=== PATIENT | female | born 1955 | race African-American/Black ===

== ENCOUNTER 2018-03-23 18:37 | Inpatient (IN) | payer OTHER ==
[2018-03-23] MEDS: SOD CHLORIDE 0.9% 250 ML IV* (00:15)
[2018-03-23 19:53] LABS: ADD MAN DIFF? NO
[2018-03-23 19:56] LABS: BASOPHILS % 0.6 % (0.0-2.0); EOSINOPHILS # 0.2 10^3/ul (0.0-0.5); EOSINOPHILS % 2.3 % (0.0-7.0); HEMATOCRIT 45.9 % (37.0-47.0); HEMOGLOBIN 14.8 g/dl (12.0-16.0); LYMPHOCYTES # 1.7 10^3/ul (0.8-2.9); LYMPHOCYTES % 26.2 % (15.0-51.0); MEAN CORPUSCULAR HEMOGLOBIN 28.4 pg (29.0-33.0); MEAN CORPUSCULAR HGB CONC 32.2 g/dl (32.0-37.0); MEAN CORPUSCULAR VOLUME 87.9 fl (82.0-101.0); MEAN PLATELET VOLUME 11.6 fl (7.4-10.4); MONOCYTE # 0.5 10^3/ul (0.3-0.9); MONOCYTES % 7.4 % (0.0-11.0); NEUTROPHIL # 4.2 10^3/ul (1.6-7.5); NEUTROPHILS % 63.2 % (39.0-77.0); PLATELET COUNT 280 10^3/UL (140-415); RED BLOOD COUNT 5.22 10^6/ul (4.20-5.40); RED CELL DISTRIBUTION WIDTH 15.4 % (11.5-14.5)
[2018-03-23 19:56] LABS: WHITE BLOOD COUNT 6.6 10^3/ul (4.8-10.8)
[2018-03-23 20:13] LABS: ACETAMINOPHEN < 10.0 ug/ml (10.0-30.0); ALANINE AMINOTRANSFERASE 25 IU/L (13-69); ALBUMIN 4.1 g/dl (3.3-4.9); ALBUMIN/GLOBULIN RATIO 1.02; ALKALINE PHOSPHATASE 129 IU/L (42-121); ANION GAP 13 (8-16); ASPARTATE AMINO TRANSFERASE 28 IU/L (15-46); BILIRUBIN,INDIRECT 0.2 mg/dl (0-1.1); BILIRUBIN,TOTAL 0.2 mg/dl (0.2-1.3); BLOOD UREA NITROGEN 17 mg/dl (7-20); CALCIUM 9.4 mg/dl (8.4-10.2); CARBON DIOXIDE 28 mmol/L (21-31); CHLORIDE 109 mmol/L (97-110); CREATININE 1.03 mg/dl (0.44-1.00); GLUCOSE 131 mg/dl (70-220); POTASSIUM 3.9 mmol/L (3.5-5.1); SALICYLATE < 1.0 mg/dl (5.0-30.0); SODIUM 146 mmol/L (135-144); TOTAL PROTEIN 8.1 g/dl (6.1-8.1)
[2018-03-23 20:14] LABS: AMMONIA < 9 umol/l (9-30)
[2018-03-23 20:24] LABS: TROPONIN-I < 0.012 ng/ml (0.000-0.120)
[2018-03-23 20:27] LABS: ADD UMIC YES; UR ASCORBIC ACID NEGATIVE (NEGATIVE); UR BACTERIA FEW /HPF (NONE SEEN); UR BILIRUBIN (Dip) NEGATIVE (NEGATIVE); UR BLOOD (Dip) 2+ mg/dL (NEGATIVE); UR CLARITY SLIGHTLY CLOUDY (CLEAR); UR COLOR YELLOW (YELLOW); UR GLUCOSE (Dip) NEGATIVE (NEGATIVE); UR KETONES (Dip) NEGATIVE (NEGATIVE); UR LEUKOCYTE ESTERASE (Dip) TRACE Leu/ul (NEGATIVE); UR MUCUS FEW /HPF (NONE SEEN); UR NITRITE (Dip) NEGATIVE (NEGATIVE); UR RBC 10 /HPF (0-5); UR SQUAMOUS EPITHELIAL CELL FEW /HPF (FEW); UR TOTAL PROTEIN (Dip) NEGATIVE (NEGATIVE); UR UROBILINOGEN (Dip) 1+ mg/dL (NEGATIVE); UR WBC 6 /HPF (0-5)
[2018-03-23] MEDS ORDERED: LABETALOL HCL 20MG INJ IV ×2 (20:30→21:30)
[2018-03-23] MEDS ORDERED: ACETAMINOPHEN 650 MG SUPP PR (20:30)
[2018-03-23 20:42] LABS: LACTIC ACID 1.8 mmol/L (0.5-2.0)
[2018-03-23 20:44] LABS: ETHANOL < 10.0 mg/dl
[2018-03-23] MEDS: IOHEXOL 100 ML (20:49)
[2018-03-23] MEDS: SOD CHLORIDE 0.9% 100 ML (20:49)
[2018-03-23] MEDS: IOHEXOL 350MG/ML 50 ML BTL (20:50)
[2018-03-23 21:10] LABS: AMPHETAMINE/METHAMPHETAMINE NEGATIVE (NEGATIVE); BARBITURATES NEGATIVE (NEGATIVE); BENZODIAZEPINES NEGATIVE (NEGATIVE); CANNABINOIDS NEGATIVE (NEGATIVE); COCAINE NEGATIVE (NEGATIVE); OPIATES NEGATIVE (NEGATIVE)
[2018-03-23 21:15] LABS: PROTIME 12.2 Sec (11.9-14.9)
[2018-03-23 21:16] LABS: PARTIAL THROMBOPLASTIN TIME 28.1 Sec (25.0-35.0)
[2018-03-23 21:24] LABS: MAGNESIUM 1.9 mg/dl (1.7-2.5)
[2018-03-23 21:24] LABS: CHOL/HDL RATIO 5.4 RATIO; CHOLESTEROL 234 mg/dl (100-200); HDL CHOLESTEROL 43 mg/dl (35-98); LDL CHOLESTEROL,CALCULATED 151 mg/dl; TRIGLYCERIDES 201 mg/dl (0-149)
[2018-03-23] MEDS: DESMOPRESSIN IVPB (21:42)
[2018-03-23] MEDS: SOD CHLORIDE 0.9% IVPB (21:42)
[2018-03-23 21:59] LABS: HEMOGLOBIN A1C 6.3 % (0-5.9)
[2018-03-23] MEDS: DOCUSATE SODIUM 100 MG CAP PO (23:08)
[2018-03-23 23:46] LABS: LACTIC ACID 1.3 mmol/L (0.5-2.0)
[2018-03-23 23:50] LABS: ANTIGEN IDENTIFICATION 1 1
[2018-03-24] MEDS: PANTOPRAZOLE 40 MG INJ IV (06:04)
[2018-03-24] MEDS ORDERED: ONDANSETRON (ODT) 4 MG TAB ODT (15:00)
[2018-03-24] MEDS ORDERED: MECLIZINE 25 MG TAB PO (15:00)
[2018-03-24] MEDS: DOCUSATE SODIUM 100 MG CAP PO ×2 (17:39→21:22)
[2018-03-24] MEDS: AMLODIPINE 5 MG TAB PO (21:22)
[2018-03-24] MEDS: ATORVASTATIN 20 MG TAB PO (21:22)
[2018-03-25] MEDS ORDERED: VANCOMYCIN IV PER PHARMACY XX (02:30)
[2018-03-25] MEDS: VANCOMYCIN 2 GM in SOD CHLORIDE 0.9% 500 ML IVPB (03:44)
[2018-03-25] MEDS: PANTOPRAZOLE 40 MG INJ IV (06:47)
[2018-03-25] MEDS: ASPIRIN 81 MG TAB PO (08:58)
[2018-03-25] MEDS: BENAZEPRIL 20 MG TAB PO (08:58)
[2018-03-25] MEDS: AMLODIPINE 5 MG TAB PO (08:59)
[2018-03-25] MEDS: CLOPIDOGREL 75 MG TAB PO (08:59)
[2018-03-25] MEDS: DOCUSATE SODIUM 100 MG CAP PO ×2 (08:59→22:14)
[2018-03-25] MEDS: ATORVASTATIN 20 MG TAB PO (22:14)
[2018-03-25] MEDS: VANCOMYCIN 1.5 GM in SOD CHLORIDE 0.9% 250 ML IVPB (22:37)
[2018-03-26] MEDS ORDERED: VANCOMYCIN 1.25 GM in SOD CHLORIDE 0.9% 250 ML IVPB (03:00)
[2018-03-26] MEDS: PANTOPRAZOLE 40 MG INJ IV (05:59)
[2018-03-26 06:31] LABS: BLOOD UREA NITROGEN 15 mg/dl (7-20)
[2018-03-26 06:31] LABS: CREATININE 0.76 mg/dl (0.44-1.00)
[2018-03-26] MEDS: BENAZEPRIL 20 MG TAB PO (09:18)
[2018-03-26] MEDS: DOCUSATE SODIUM 100 MG CAP PO ×2 (09:19→21:29)
[2018-03-26] MEDS: AMLODIPINE 5 MG TAB PO (09:20)
[2018-03-26] MEDS: CLOPIDOGREL 75 MG TAB PO (09:21)
[2018-03-26] MEDS: CEFTRIAXONE 1 GM/50 ML (PMX) 50 ML IVPB ×2 (10:00→12:14)
[2018-03-26] MEDS: VANCOMYCIN 750 MG in SOD CHLORIDE 0.9% 150 ML IVPB (13:51)
[2018-03-26] MEDS: ATORVASTATIN 20 MG TAB PO (21:29)
[2018-03-27] MEDS: VANCOMYCIN 750 MG in SOD CHLORIDE 0.9% 150 ML IVPB ×2 (00:22→12:55)
[2018-03-27] MEDS: PANTOPRAZOLE 40 MG INJ IV (05:57)
[2018-03-27 06:42] LABS: BLOOD UREA NITROGEN 12 mg/dl (7-20)
[2018-03-27 06:42] LABS: CREATININE 0.91 mg/dl (0.44-1.00)
[2018-03-27] MEDS: BENAZEPRIL 20 MG TAB PO (08:13)
[2018-03-27] MEDS: DOCUSATE SODIUM 100 MG CAP PO ×2 (08:13→21:41)
[2018-03-27] MEDS: AMLODIPINE 5 MG TAB PO (08:14)
[2018-03-27] MEDS: CEFTRIAXONE 1 GM/50 ML (PMX) 50 ML IVPB (10:29)
[2018-03-27 12:42] LABS: VANCOMYCIN,TROUGH 13.3 ug/ml (10.0-20.0)
[2018-03-27] MEDS: ATORVASTATIN 20 MG TAB PO (21:41)
[2018-03-28] MEDS: VANCOMYCIN 750 MG in SOD CHLORIDE 0.9% 150 ML IVPB ×2 (00:30→12:48)
[2018-03-28] MEDS: PANTOPRAZOLE 40 MG INJ IV (06:01)
[2018-03-28] MEDS: AMLODIPINE 5 MG TAB PO (08:21)
[2018-03-28] MEDS: DOCUSATE SODIUM 100 MG CAP PO ×2 (08:22→20:31)
[2018-03-28] MEDS: BENAZEPRIL 20 MG TAB PO (08:22)
[2018-03-28 09:18] LABS: CREATININE 0.81 mg/dl (0.44-1.00)
[2018-03-28 09:18] LABS: BLOOD UREA NITROGEN 12 mg/dl (7-20)
[2018-03-28] MEDS: CEFTRIAXONE 1 GM/50 ML (PMX) 50 ML IVPB (10:32)
[2018-03-28] MEDS: ATORVASTATIN 20 MG TAB PO (20:31)
[2018-03-29] MEDS: PANTOPRAZOLE 40 MG INJ IV (05:49)
[2018-03-29] MEDS: BENAZEPRIL 20 MG TAB PO (08:44)
[2018-03-29] MEDS: AMLODIPINE 5 MG TAB PO (08:44)
[2018-03-29] MEDS: DOCUSATE SODIUM 100 MG CAP PO ×2 (08:44→21:28)
[2018-03-29] MEDS: ATORVASTATIN 20 MG TAB PO (21:28)
[2018-03-30] MEDS: PANTOPRAZOLE 40 MG INJ IV (06:03)
[2018-03-30] MEDS: DOCUSATE SODIUM 100 MG CAP PO ×2 (08:57→21:21)
[2018-03-30] MEDS: AMLODIPINE 5 MG TAB PO (08:57)
[2018-03-30] MEDS: BENAZEPRIL 20 MG TAB PO (08:57)
[2018-03-30 17:29] LABS: ANION GAP 13 (8-16); BLOOD UREA NITROGEN 13 mg/dl (7-20); CARBON DIOXIDE 27 mmol/L (21-31); CHLORIDE 105 mmol/L (97-110); CREATININE 0.75 mg/dl (0.44-1.00); GLUCOSE 130 mg/dl (70-220); MAGNESIUM 2.1 mg/dl (1.7-2.5); POTASSIUM 4.1 mmol/L (3.5-5.1); SODIUM 141 mmol/L (135-144)
[2018-03-30] MEDS: ATORVASTATIN 20 MG TAB PO (21:21)
[2018-03-31] MEDS: PANTOPRAZOLE 40 MG INJ IV (06:18)
[2018-03-31] MEDS: DOCUSATE SODIUM 100 MG CAP PO ×2 (08:21→20:39)
[2018-03-31] MEDS: AMLODIPINE 5 MG TAB PO (08:21)
[2018-03-31] MEDS: BENAZEPRIL 20 MG TAB PO (08:21)
[2018-03-31] MEDS: ATORVASTATIN 20 MG TAB PO (20:39)
[2018-04-01] MEDS: PANTOPRAZOLE 40 MG INJ IV (05:43)
[2018-04-01] MEDS: DOCUSATE SODIUM 100 MG CAP PO ×2 (08:37→20:26)
[2018-04-01] MEDS: AMLODIPINE 5 MG TAB PO (08:37)
[2018-04-01] MEDS: BENAZEPRIL 20 MG TAB PO (08:37)
[2018-04-01] MEDS: ATORVASTATIN 20 MG TAB PO (20:26)
[2018-04-02] MEDS: PANTOPRAZOLE 40 MG INJ IV (06:07)
[2018-04-02] MEDS: BENAZEPRIL 20 MG TAB PO (09:05)
[2018-04-02] MEDS: AMLODIPINE 5 MG TAB PO (09:05)
[2018-04-02] MEDS: DOCUSATE SODIUM 100 MG CAP PO (09:05)
== END 2018-04-02 16:12 | DRG 64 ==
LOC: ICU 20:23 → E/R 18:37 → 6WM 03-24 23:24
PROVIDERS: Family Medicine
DX: I61.9 Nontraumatic intracerebral hemorrhage, unspecified (principal); G93.6 Cerebral edema; Z68.42 Body mass index [BMI] 45.0-49.9, adult; N39.0 Urinary tract infection, site not specified; I69.254 Hemiplegia and hemiparesis following other nontraumatic intracranial hemorrhage affecting left non-dominant side; E66.01 Morbid (severe) obesity due to excess calories; E78.5 Hyperlipidemia, unspecified; I10 Essential (primary) hypertension; R53.1 Weakness; R73.03 Prediabetes; Z87.891 Personal history of nicotine dependence; Z79.02 Long term (current) use of antithrombotics/antiplatelets; Z79.82 Long term (current) use of aspirin
CPT/HCPCS: 36415; 36430; 70450; 70496; 70498; 70553; 80048; 80053; 80061; 80202; 80307; 81001; 82140; 82565; 82962; 83036; 83605; 83735; 84443; 84484; 84520; 85025; 85610; 85730; 86644; 86850; 86870; 86900; 86901; 86902; 86945; 87040; 87081; 92610; 93005; 93306; 97110; 97116; 97162; 97165; 97530; 97535; 99291-25